=== PATIENT | male | born 1950 | race Caucasian/White ===

== ENCOUNTER 2016-09-16 23:32 | Emergency (ER) | payer MEDICARE, OTHER ==
[~2016-09-16] VITALS: Ht 175.3 cm; Wt 95.5 kg
[2016-09-16 23:37] VITALS: Ht 175.3 cm; Wt 95.5 kg
[2016-09-16] MEDS ORDERED: SOD CHLORIDE 0.9% 1,000 ML IV STA (23:38)
[2016-09-16 23:57] LABS: ADD SCAN DIFF NO
[2016-09-16 23:58] LABS: BASOPHILS % 0.2 % (0.0-2.0); EOSINOPHILS % 0.2 % (0.0-7.0); HEMATOCRIT 47.1 % (42.0-52.0); HEMOGLOBIN 16.2 g/dl (14.0-18.0); LYMPHOCYTES # 1.4 10^3/ul (0.8-2.9); MEAN CORPUSCULAR HEMOGLOBIN 30.7 pg (29.0-33.0); MEAN CORPUSCULAR HGB CONC 34.4 g/dl (32.0-37.0); MEAN CORPUSCULAR VOLUME 89.4 fl (82.0-101.0); MEAN PLATELET VOLUME 10.5 fl (7.4-10.4); MONOCYTE # 0.3 10^3/ul (0.3-0.9); MONOCYTES % 2.5 % (0.0-11.0); NEUTROPHIL # 8.4 10^3/ul (1.6-7.5); NEUTROPHILS % 82.6 % (39.0-77.0); PLATELET COUNT 187 10^3/UL (140-415); RED BLOOD COUNT 5.27 10^6/ul (4.70-6.10); WHITE BLOOD COUNT 10.2 10^3/ul (4.8-10.8)
--- NOTE | 2016-09-17 00:02 | ERD ---
ER Documentation Chief Complaint Date/Time DATE: 09/17/16 TIME: 00:01 Chief Complaint BIBNatalie RA39, ALOC, ETOH intoxication,drank Vodka HPI Patient is a 66-year-old male who is found altered at home and unresponsive by family. Per EMS report he was either lowered to the ground and fell to the ground, but they deny that there is a trauma. The patient's family member, who is a nurse started doing CPR on the patient, and apparently he bit her lip as she tried to give rescue breaths. The patient was found to have odor of alcohol , and his history of heavy vodka drinking. History is limited due to patient's mental status at this time, but he has no acute complaints. ROS All systems reviewed and are negative except as per history of present illness. Allergies Allergies: Coded Allergies: No Known Allergy (Unverified , 09/16/16) PMhx/Soc Past medical history: Diabetes, high blood pressure Past surgical history: None Social history: Heavy alcohol use, unknown tobacco or illicits. History of Surgery: No Anesthesia Reaction: No Hx Neurological Disorder: No Hx Respiratory Disorders: No Hx Cardiac Disorders: Yes (HTN) Hx Psychiatric Problems: Yes (ETOH abuse) Hx Miscellaneous Medical Probl: No (NIDDM) Hx Alcohol Use: Yes (ETOH abuse, unknown amt of vodka per family report) Hx Substance Use: No Hx Tobacco Use: No Smoking Status: Never smoker FmHx Family History: No coronary disease, No diabetes Physical Exam Vitals Vital Signs Date Time Temp Pulse Resp B/P Pulse Ox O2 Delivery O2 Flow Rate FiO2 09/16/16 23:37 97.4 89 20 140/85 98 Physical Exam Const: Lethargic, odor of alcohol Head: Atraumatic, dried blood on face Eyes: Conjunctival injection, no pallor or icterus ENT: Normal External Ears, Nose and Mouth. Neck: Full range of motion. No midline tenderness Resp: Clear to auscultation bilaterally, no wheezes, no rales Cardio: Regular rate and rhythm, no murmurs Abd: Soft, non tender, non distended. No guarding or rebound Skin: No petechiae or rashes Ext: No cyanosis, or edema Neur: Lethargic, not oriented to time place or situation, moves 4 extremities appropriately, no facial droop, exam limited by mental status Psych: Appears intoxicated Result Diagram: 09/16/16 2350 09/16/16 2350 Results 24 hrs Laboratory Tests Test 09/16/16 23:50 09/17/16 00:02 09/17/16 02:08 White Blood Count 10.210^3/ul Red Blood Count 5.2710^6/ul Hemoglobin 16.2g/dl Hematocrit 47.1% Mean Corpuscular Volume 89.4fl Mean Corpuscular Hemoglobin 30.7pg Mean Corpuscular Hemoglobin Concent 34.4g/dl Red Cell Distribution Width 13.0% Platelet Count 63188^3/UL Mean Platelet Volume 10.5fl Neutrophils % 82.6% Lymphocytes % 14.0% Monocytes % 2.5% Eosinophils % 0.2% Basophils % 0.2% Nucleated Red Blood Cells % 0.0/100WBC Neutrophils # 8.410^3/ul Lymphocytes # 1.410^3/ul Monocytes # 0.310^3/ul Eosinophils # 0.010^3/ul Basophils # 0.010^3/ul Nucleated Red Blood Cells # 0.010^3/ul Sodium Level 145mmol/L Potassium Level 4.1mmol/L Chloride Level 108mmol/L Carbon Dioxide Level 22mmol/L Anion Gap 19 Blood Urea Nitrogen 19mg/dl Creatinine 0.74mg/dl Glucose Level 192mg/dl Calcium Level 8.8mg/dl Total Bilirubin 0.3mg/dl Direct Bilirubin 0.00mg/dl Indirect Bilirubin 0.3mg/dl Aspartate Amino Transf (AST/SGOT) 24IU/L Alanine Aminotransferase (ALT/SGPT) 36IU/L Alkaline Phosphatase 102IU/L Total Protein 7.7g/dl Albumin 4.5g/dl Globulin 3.20g/dl Albumin/Globulin Ratio 1.40 Salicylates Level < 1.0mg/dl Acetaminophen Level < 10.0ug/ml Ethyl Alcohol Level 269.0mg/dl Bedside Glucose 59mg/dL 256mg/dL Current Medications Medications (Trade) Dose Ordered Sig/Segun Route PRN Reason Start Time Stop Time Status Last Admin Dose Admin Sodium Chloride 1,000 ml @ 1,000 mls/hr Q1H STAT IV 09/16/16 23:38 09/17/16 00:37 DC 09/17/16 00:03 Dextrose/Sodium Chloride (D5-1/2ns) 1,000 ml @ 250 mls/hr Q4H STAT IV 09/17/16 00:17 09/17/16 04:16 09/17/16 00:50 Procedures/MDM EKG read by me: Time 2357, rate 81 Rhythm: Normal sinus rhythm with first-degree AV block [place]: Normal Intervals: First-degree AV block, nonspecific intraventricular conduction delay ST-T waves: No ischemic changes Ectopy: No Q-waves: No Impression: First-degree AV block, LVH, nonspecific intraventricular conduction delay, no ischemia or ectopy. MDM: Patient is a 66-year-old male who was found unresponsive at home on the floor. I obtained additional information from family, and they state that they thought he was not breathing for several minutes. They deny that there was a fall or trauma. They report that the patient frequently drinks heavily. The patient acknowledges this. Labs and head CT are unremarkable, and the patient is now fully alert and oriented, has no complaints and states that he feels well and would like to go home. I requested that he stay in the ER until his chest x-ray has resulted, but he refused to wait. He also refused to wait for his paperwork. He did demonstrate capacity at the time of discharge and left the hospital with steady gait walking with his daughter. I did request that he return to the ER for any new or worsening condition, and avoid alcohol. Departure Diagnosis: Primary Impression: Alcoholic intoxication Condition: LEONARDA South MD Sep 17, 2016 00:02
[2016-09-17 00:17] LABS: ALANINE AMINOTRANSFERASE 36 IU/L (13-69); ALBUMIN 4.5 g/dl (3.3-4.9); ALKALINE PHOSPHATASE 102 IU/L (42-121); ANION GAP 19 (8-16); ASPARTATE AMINO TRANSFERASE 24 IU/L (15-46); BILIRUBIN,INDIRECT 0.3 mg/dl (0-1.1); BILIRUBIN,TOTAL 0.3 mg/dl (0.2-1.3); BLOOD UREA NITROGEN 19 mg/dl (7-20); CALCIUM 8.8 mg/dl (8.4-10.2); CARBON DIOXIDE 22 mmol/L (21-31); CHLORIDE 108 mmol/L (97-110); CREATININE 0.74 mg/dl (0.61-1.24); GLUCOSE 192 mg/dl (70-220); POTASSIUM 4.1 mmol/L (3.5-5.1); SODIUM 145 mmol/L (135-144); TOTAL PROTEIN 7.7 g/dl (6.1-8.1)
[2016-09-17] MEDS ORDERED: DEXTROSE 5%-0.45% NACL 1,000 ML IV STA (00:17)
--- NOTE | 2016-09-17 00:55 | RADRPT ---
PROCEDURE: CT brain without contrast CLINICAL INDICATION: Altered level of consciousness. Intoxication. TECHNIQUE: A CT of the brain was performed utilizing axial sections from the skull base through th e vertex without contrast. Sagittal and coronal images were also reformatted. The exam CTDIvol = 44. 52 mGy and DLP = 720.23 mGy-cm. COMPARISON: None available FINDINGS: No acute intracranial hemorrhage is identified. There is no mass effect or midline shift. No extra -axial fluid collection is seen. The ventricles and sulci are larger in size and configuration for the patient's provided age of 66 years consistent with advanced generalized atrophy. The density of the brain is within normal limits. Fatima-white differentiation is preserved with no findings to sug gest an acute ischemic infarct. The fourth ventricle is midline and there is no density alteration within the yana or cerebellum. The osseous structures are unremarkable. The mastoid air cells and visualized paranasal sinuses are clear. Atherosclerotic calcification of the cavernous internal carotid arteries is present. RPTAT:HJJR IMPRESSION: 1.Advanced atrophy for the patient's provided age with no evidence of acute intracranial abnormality or findings to explain the patient's provided history. 2. Atherosclerotic calcification of the cavernous internal carotid arteries. Physician Mario Date Time Electronically viewed and signed by Physician Mario on 09/17/2016 00:55 /
[2016-09-17 01:16] LABS: ACETAMINOPHEN < 10.0 ug/ml (10.0-30.0); SALICYLATE < 1.0 mg/dl (5.0-30.0)
--- NOTE | 2016-09-17 02:32 | RADRPT ---
PROCEDURE: Chest. CLINICAL INDICATION: Chest pain. TECHNIQUE: Single frontal view of the chest was obtained. COMPARISON: None. FINDINGS: The cardiac silhouette is enlarged. The aortic arch is unremarkable. There are hypoventilatory mendiola ges with mild bibasilar atelectasis. There is no focal consolidation, vascular congestion or pleural effusion. There is no pneumothorax. IMPRESSION: Hypoventilatory changes with mild bibasilar atelectasis. Cardiomegaly. .Ricardo Snowden MD, MD Date Time Electronically viewed and signed by .Ricardo Snowden MD, MD on 09/17/2016 02:32 .T/
[2016-09-17 02:34] VITALS: BP 169/103; PULSE 96; RESP 15
[2016-09-17 02:39] LABS: BARBITURATES Negative (NEGATIVE); BENZODIAZEPINES Negative (NEGATIVE); CANNABINOIDS Negative (NEGATIVE); COCAINE Negative (NEGATIVE); OPIATES Negative (NEGATIVE)
== END 2016-09-17 02:35 | disposition home or self-care (01) ==
LOC: E/R 23:32
DX: F10.129 Alcohol abuse with intoxication, unspecified (principal); I10 Essential (primary) hypertension; E11.9 Type 2 diabetes mellitus without complications; R41.82 Altered mental status, unspecified
CPT/HCPCS: 36415; 70450; 71010; 80053; 80306; 80307; 82962; 85025; 93005; 96360; 99285; J7030; J7042